=== PATIENT | female | born 1990 | race Hispanic/Latino ===

== ENCOUNTER 2017-11-15 09:34 | Emergency (ER) | payer MEDICAID, OTHER ==
[2017-11-15] MEDS ORDERED: HYDROXYZINE HCL 25 MG TABLET ONE (10:27)
[2017-11-15 10:49] LABS: BASOPHILS % (AUTO) 0.4 % (0.0-5.0); EOSINOPHILS % (AUTO) 1.6 % (0.0-8.0); HEMATOCRIT 37.6 % (36-48); LYMPHOCYTES % (AUTO) 12.1 % (21.0-51.0); MEAN CORPUSCULAR HEMOGLOBIN 25.8 pg (27.0-33.0); MEAN CORPUSCULAR HGB CONC 33.4 g/dL (32.0-36.0); MEAN CORPUSCULAR VOLUME 77.4 fL (79-99); MONOCYTES % (AUTO) 4.7 % (3.0-13.0); NEUTROPHILS % (AUTO) 81.2 % (40.0-77.0); PLATELET COUNT (AUTO) 275 K/uL (130-400); RED BLOOD CELL COUNT(AUTO) 4.86 MIL/uL (4.00-5.50); WHITE BLOOD COUNT (AUTO) 9.7 K/uL (4.8-10.8)
[2017-11-15 10:56] LABS: APPEARANCE,URINE Clear (CLEAR); BILIRUBIN,URINE Negative (NEGATIVE); COLOR,URINE Yellow (YELLOW); GLUCOSE, URINE (UA) Negative (NEGATIVE); KETONES,URINE Negative (NEGATIVE); LEUKOCYTE ESTERASE ,URINE Negative (NEGATIVE); NITRATE,URINE Negative (NEGATIVE); OCCULT BLOOD,URINE Negative (NEGATIVE); PH,URINE 5.5 (5.0-8.0); PROTEIN,URINE Negative (NEGATIVE)
[2017-11-15 11:00] LABS: CREATININE 0.8 mg/dL (0.5-1.5); POTASSIUM 3.9 mmol/L (3.5-5.1)
[2017-11-15 11:02] LABS: ALBUMIN 3.7 g/dL (3.5-5.0); BILIRUBIN,TOTAL 0.2 mg/dL (0.2-1.0); TOTAL PROTEIN, SERUM 7.5 g/dL (6.0-8.3)
[2017-11-15 11:03] LABS: HCG,QUAL RESULT NEGATIVE (NEGATIVE)
[2017-11-15] MEDS ORDERED: ACETAMINOPHEN EXTRA STRENGTH 500 MG TABLET ONE (11:16)
== END 2017-11-15 11:20 | disposition home or self-care (01) ==
LOC: EDH 09:34
DX: G43.909 Migraine, unspecified, not intractable, without status migrainosus (principal); G44.209 Tension-type headache, unspecified, not intractable
CPT/HCPCS: 36415; 80053; 81003; 81025; 85025